=== PATIENT | male | born 1980 | race Two or more races ===

== ENCOUNTER 2016-06-20 12:00 | Emergency (ER) | payer OTHER ==
[2016-06-20] MEDS ORDERED: PROPARACAINE HCL 0.5% 300 GTTS/BOT SOLN.DROP ONE (12:22)
== END 2016-06-20 12:47 | disposition home or self-care (01) ==
LOC: ED 12:00
DX: T15.91XA Foreign body on external eye, part unspecified, right eye, initial encounter (principal); X58.XXXA Exposure to other specified factors, initial encounter; Y92.89 Other specified places as the place of occurrence of the external cause; Y99.0 Civilian activity done for income or pay
CPT/HCPCS: 99283 ×2; A9270